=== PATIENT | female | born 1985 | race Caucasian/White ===

== ENCOUNTER 2017-08-19 14:18 | Emergency (ER) | payer MEDICAID, OTHER ==
[~2017-08-19] VITALS: Ht 152.4 cm; Wt 110.0 kg
[2017-08-19 14:27] VITALS: Ht 152.4 cm; Wt 110.0 kg
[2017-08-19 17:02] LABS: BASOPHILS % 0.4 % (0.0-2.0); EOSINOPHILS # 0.1 10^3/ul (0.0-0.5); HEMATOCRIT 41.1 % (37.0-47.0); HEMOGLOBIN 13.7 g/dl (12.0-16.0); LYMPHOCYTES # 3.1 10^3/ul (0.8-2.9); LYMPHOCYTES % 37.5 % (15.0-51.0); MEAN CORPUSCULAR HEMOGLOBIN 30.3 pg (29.0-33.0); MEAN CORPUSCULAR HGB CONC 33.3 g/dl (32.0-37.0); MEAN CORPUSCULAR VOLUME 90.9 fl (82.0-101.0); MEAN PLATELET VOLUME 9.2 fl (7.4-10.4); MONOCYTE # 0.5 10^3/ul (0.3-0.9); MONOCYTES % 6.1 % (0.0-11.0); NEUTROPHIL # 4.5 10^3/ul (1.6-7.5); NEUTROPHILS % 54.8 % (39.0-77.0); PLATELET COUNT 299 10^3/UL (140-415); RED BLOOD COUNT 4.52 10^6/ul (4.20-5.40); RED CELL DISTRIBUTION WIDTH 13.4 % (11.5-14.5); WHITE BLOOD COUNT 8.2 10^3/ul (4.8-10.8)
--- NOTE | 2017-08-19 17:03 | RADRPT ---
PROCEDURE: US Pelvis CLINICAL INDICATION: vaginal bleeding x 1 week TECHNIQUE: Multiple sonographic images of the pelvis were obtained utilizing a transabdominal and endovaginal technique. The images were reviewed on a PACS workstation. COMPARISON: None. FINDINGS: The uterus measures 7.6 x 3.6 x 4.6 cm. The endometrial echo complex measures 5 mm in thickness. N o discrete lesion is seen. The right ovary measures 3.5 x 1.5 x 2.2 cm. The left ovary measures 3.0 x 1.4 x 2.3 cm. There is no rmal vascular flow in both ovaries. No significant ovarian lesions are seen. No significant pelvic free fluid is identified. IMPRESSION: Unremarkable pelvic ultrasound, as above. RPTAT: EE Physician Jaskaran Date Time Electronically viewed and signed by Physician Jaskaran on 08/19/2017 17:03 /
[2017-08-19 17:06] LABS: ADD UMIC YES; UR ASCORBIC ACID NEGATIVE (NEGATIVE); UR BILIRUBIN (Dip) NEGATIVE (NEGATIVE); UR BLOOD (Dip) 3+ mg/dL (NEGATIVE); UR CLARITY CLEAR (CLEAR); UR COLOR YELLOW (YELLOW); UR GLUCOSE (Dip) NEGATIVE (NEGATIVE); UR KETONES (Dip) NEGATIVE (NEGATIVE); UR LEUKOCYTE ESTERASE (Dip) NEGATIVE Leu/ul (NEGATIVE); UR NITRITE (Dip) NEGATIVE (NEGATIVE); UR RBC 37 /HPF (0-5); UR SPECIFIC GRAVITY (Dip) 1.015 (1.003-1.030); UR TOTAL PROTEIN (Dip) NEGATIVE (NEGATIVE); UR UROBILINOGEN (Dip) NEGATIVE (NEGATIVE)
--- NOTE | 2017-08-19 17:34 | ERD ---
ER Documentation Chief Complaint Date/Time DATE: 08/19/17 TIME: 17:30 Chief Complaint vaginal bleeding, not HPI This is a 32-year-old female who presents the emergency department today complaining of vaginal bleeding past 5 days. Patient states that last week she started bleeding a lot and passed a couple clots. States that she recently started a new oral contraceptive pill. States se does have some crampy lower pelvic pain. She came to the ER because her parents told her that she looked pale. She does have an appointment for follow-up next week with her clinic that prescribed her pills. Denies any fevers or chills. ROS All systems reviewed and are negative except as per history of present illness. Medications Home Meds Active Scripts Acetaminophen* (Tylophen*) 500 Mg Capsule, 1 CAP PO Q6H Y for PAIN AND OR ELEVATED TEMP, #30 CAP Prov:KOBY WHYTE PA-C 08/19/17 Naproxen* (Naprosyn*) 500 Mg Tablet, 500 MG PO BID Y for PAIN AND/OR INFLAMMATION, #30 TAB Prov:KOBY WHYTE PA-C 08/19/17 Allergies Allergies: Coded Allergies: No Known Allergies (Verified Allergy, 01/12/14) PMhx/Soc Medical and Surgical Hx: pt denies Medical Hx, pt denies Surgical Hx Hx Miscellaneous Medical Probl: Yes (MORBIDLY OBESE) Hx Alcohol Use: No Hx Substance Use: No Hx Tobacco Use: No Smoking Status: Never smoker Physical Exam Vitals Vital Signs Date Time Temp Pulse Resp B/P Pulse Ox O2 Delivery O2 Flow Rate FiO2 08/19/17 14:27 99.6 69 18 119/56 99 Physical Exam Const: obese, NAD Head: Atraumatic Eyes: Normal Conjunctiva ENT: Normal External Ears, Nose and Mouth. Neck: Full range of motion..~ No meningismus. Resp: Clear to auscultation bilaterally Cardio: Regular rate and rhythm, no murmurs Abd: Soft, mild pelvic tenderness, non distended. Normal bowel sounds Skin: No petechiae or rashes Back: No midline or flank tenderness Ext: No cyanosis, or edema Neur: Awake and alert Psych: Normal Mood and Affect Result Diagram: 08/19/17 1640 Results 24 hrs Laboratory Tests Test 08/19/17 16:40 White Blood Count 8.210^3/ul Red Blood Count 4.5210^6/ul Hemoglobin 13.7g/dl Hematocrit 41.1% Mean Corpuscular Volume 90.9fl Mean Corpuscular Hemoglobin 30.3pg Mean Corpuscular Hemoglobin Concent 33.3g/dl Red Cell Distribution Width 13.4% Platelet Count 02937^3/UL Mean Platelet Volume 9.2fl Neutrophils % 54.8% Lymphocytes % 37.5% Monocytes % 6.1% Eosinophils % 1.0% Basophils % 0.4% Nucleated Red Blood Cells % 0.0/100WBC Neutrophils # 4.510^3/ul Lymphocytes # 3.110^3/ul Monocytes # 0.510^3/ul Eosinophils # 0.110^3/ul Basophils # 0.010^3/ul Nucleated Red Blood Cells # 0.010^3/ul Urine Color YELLOW Urine Clarity CLEAR Urine pH 6.0 Urine Specific [place] 1.015 Urine Ketones NEGATIVEmg/dL Urine Nitrite NEGATIVEmg/dL Urine Bilirubin NEGATIVEmg/dL Urine Urobilinogen NEGATIVEmg/dL Urine Leukocyte Esterase NEGATIVELeu/ul Urine Microscopic RBC 37/HPF Urine Microscopic WBC 3/HPF Urine Hemoglobin 3+mg/dL Urine Glucose NEGATIVEmg/dL Urine Total Protein NEGATIVEmg/dl DIAGNOSTIC IMAGING REPORT Patient: ROSELIA WITT : 1985 Age: 32 Sex: F [id number] DOS: 08/19/17 0000 Ordering MD: KOBY WHYTE PA-C Location: E Room/Bed: PROCEDURE: US Pelvis CLINICAL INDICATION: vaginal bleeding x 1 week TECHNIQUE: Multiple sonographic images of the pelvis were obtained utilizing a transabdominal and endovaginal technique. The images were reviewed on a PACS workstation. COMPARISON: None. FINDINGS: The uterus measures 7.6 x 3.6 x 4.6 cm. The endometrial echo complex measures 5 mm in thickness. No discrete lesion is seen. The right ovary measures 3.5 x 1.5 x 2.2 cm. The left ovary measures 3.0 x 1.4 x 2.3 cm. There is normal vascular flow in both ovaries. No significant ovarian lesions are seen. No significant pelvic free fluid is identified. IMPRESSION: Unremarkable pelvic ultrasound, as above. RPTAT: EE Mohit Meehan, Physician Date Time Electronically viewed and signed by Mohit Meehan Physician on 08/19/2017 17:03 RA/ CC: KOBY WHYTE PA-C Procedures/MDM This is a 32-year-old female who presents the emergency department today complaining of vaginal bleeding for the past 5 days. Patient indicated she recently started a new oral contraceptive pill. I did obtain laboratory work as well as imaging given patients complaints. test is negative Laboratory Workup shows no elevated white blood cell count. Her hemoglobin is 13.7 and she is not anemic. Platelets are within normal limits. Pelvic ultrasound is unremarkable. There is no pelvic free fluid. There is normal vascular flow to both ovaries. There are no lesions. Low suspicion for ectopic , tubo-ovarian abscess, ovarian torsion. Patient is afebrile and otherwise well-appearing. Low suspicion for acute surgical abdomen. Patient symptoms at this time is consistent with vaginal bleeding. She is already taking oral contraceptive pills and I will not change them at this time. She may follow-up with her tipple engineer who prescribed the pills. I have explained this to the patient. She will be given a prescription for Naprosyn and Tylenol for home. At this time the patient is stable for discharge and outpatient management. Patient should follow up with their PCP in the next 1-2 days. They may return to the emergency department sooner for any persistent or worsening of symptoms. Patient understood and agreed with the plan. Departure Diagnosis: Primary Impression: Vaginal bleeding Condition: Fair KOBY WHYTE PA-C Aug 19, 2017 17:34
[2017-08-19] MEDS ORDERED: ACET500C5 PO (17:41)
[2017-08-19] MEDS ORDERED: NAPR-260 PO (17:41)
[2017-08-19 17:53] VITALS: BP 115/62; PULSE 84; RESP 18; TEMP 98.3
== END 2017-08-19 17:55 | disposition home or self-care (01) ==
LOC: FTE 14:18
DX: N93.8 Other specified abnormal uterine and vaginal bleeding (principal); E66.01 Morbid (severe) obesity due to excess calories
CPT/HCPCS: 76856; 81001; 85025; Z7502

== ENCOUNTER 2018-12-22 15:11 | Emergency (ER) | payer OTHER ==
[~2018-12-22] VITALS: Ht 160 cm; Wt 136.4 kg
[~2018-12-22 15:11] MED LIST: ACET500C5 PO; NAPR-985 PO
[2018-12-22 15:28] VITALS: Ht 160 cm; Wt 136.4 kg
[2018-12-22] MEDS ORDERED: ACETAMINOPHEN 500 MG TAB PO STA (16:26)
--- NOTE | 2018-12-22 16:35 | ERD ---
ER Documentation Chief Complaint Chief Complaint bodyaches starting today, dizziness, low grade fever HPI Is a 33-year-old female who is she just recently found out she is so she has not had any OB care. She is complaining of fever and body aches and mild runny nose and dizziness that began today. She has mild pelvic cramping but no vaginal bleeding. No dysuria hematuria frequency. No nausea or vomiting. Has not taken any medication for her symptoms. ROS All systems reviewed and are negative except as per history of present illness. Medications Home Meds Active Scripts Acetaminophen* (Tylophen*) 500 Mg Capsule, 1 CAP PO Q6H PRN for PAIN AND OR ELEVATED TEMP, #30 CAP Prov:KOBY WHYTE PA-C 08/19/17 Naproxen* (Naprosyn*) 500 Mg Tablet, 500 MG PO BID PRN for PAIN AND/OR INFLAMMATION, #30 TAB Prov:KOBY WHYTE PA-C 08/19/17 Allergies Allergies: Coded Allergies: No Known Allergies (Verified Allergy, Unknown, 12/22/18) PMhx/Soc History of Surgery: No Anesthesia Reaction: No Hx Neurological Disorder: No Hx Respiratory Disorders: No Hx Cardiac Disorders: No Hx Psychiatric Problems: No Hx Miscellaneous Medical Probl: Yes (MORBIDLY OBESE) Hx Alcohol Use: No Hx Substance Use: No Hx Tobacco Use: No Smoking Status: Never smoker FmHx Family History: No diabetes Physical Exam Vitals Vital Signs Date Temp Pulse Resp B/P (MAP) Pulse Ox O2 O2 Flow FiO2 Time Delivery Rate 12/22/18 100.3 103 18 167/76 99 15:28 (106) Physical Exam INITIAL VITAL SIGNS: Reviewed by me GENERAL: Awake, alert and oriented x 4, well appearing, nontoxic, speaking in full sentences. No acute distress HEAD: Atraumatic NECK: Supple. No masses. Full range of motion. No meningismus. No midline tenderness. EYES: EOMI. PERRL. THROAT: No tonilar erythema or edema. No exudates. Uvula midline. No kissing tonsils. RESPIRATORY: Clear to auscultation bilaterally. Symmetric chest wall rise. No wheezing or rales. No accessory muscle use. CV: Regular rate and rhythm. No murmurs, rubs, or gallops. ABDOMEN: Soft, non-distended. Nontender. Negative [place]. Negative [place]neys point tenderness. No CVA tenderness bilaterally. No guarding. No rebound. EXTREMITIES: No clubbing or cyanosis. No edema. Moving all extremities normally. BACK: No midline tenderness to palpation. No step-offs. Result Diagram: 12/22/18 1727 Results 24 hrs Laboratory Tests Test 12/22/18 16:45 12/22/18 17:27 Urine Color YELLOW Urine Clarity CLEAR Urine pH 8.0 Urine Specific [place] 1.014 Urine Ketones 2+ mg/dL Urine Nitrite NEGATIVE mg/dL Urine Bilirubin NEGATIVE mg/dL Urine Urobilinogen NEGATIVE mg/dL Urine Leukocyte Esterase NEGATIVE Scot/ul Urine Hemoglobin NEGATIVE mg/dL Urine Glucose NEGATIVE mg/dL Urine Total Protein NEGATIVE mg/dl White Blood Count 4.2 10^3/ul Red Blood Count 4.17 10^6/ul Hemoglobin 12.4 g/dl Hematocrit 36.8 % Mean Corpuscular Volume 88.2 fl Mean Corpuscular Hemoglobin 29.7 pg Mean Corpuscular Hemoglobin Concent 33.7 g/dl Red Cell Distribution Width 14.1 % Platelet Count 230 10^3/UL Mean Platelet Volume 9.6 fl Immature Granulocytes % 0.500 % Neutrophils % % Segmented Neutrophils % (Manual) 68 % Band Neutrophils % (Manual) 2 % Lymphocytes % % Lymphocytes % (Manual) 8 % Reactive Lymphocytes % (Manual) 5 % Monocytes % % Monocytes % (Manual) 16 % Eosinophils % % Basophils % % Basophils % (Manual) 1 % Nucleated Red Blood Cells % 0.0 /100WBC Immature Granulocytes # 0.020 10^3/ul Neutrophils # 10^3/ul Neutrophils # (Manual) 2.9 10^3/ul Band Neutrophils # 0.0 10^3/ul Lymphocytes (Manual) 0.3 10^3/ul Lymphocytes # 10^3/ul Reactive Lymphocytes # 0.2 10^3/ul Monocytes # 10^3/ul Monocytes # (Manual) 0.6 10^3/ul Eosinophils # 10^3/ul Basophils # 10^3/ul Basophils # (Manual) 0.0 10^3/ul Nucleated Red Blood Cells # 10^3/ul Platelet Estimate NORMAL Giant Platelets 1 % Polychromasia 1+ Beta HCG, Quantitative 00794.0 mIU/ml Current Medications Medications Dose Sig/Sanjana Start Time Status Last (Trade) Ordered Route PRN Stop Time Admin Dose Reason Admin 1,000 mg ONCE STAT 12/22/18 DC 12/22/18 Acetaminophen PO 16:26 17:22 (Tylenol 12/22/18 16:29 Tab) Procedures/MDM This patient presents with flulike symptoms and low-grade temperature. She was given Tylenol. She is also without any OB care and therefore did initiate OB labs and ultrasound. Flu test is negative. OB ultrasound shows 6 weeks 3 days and a moderate area of subchorionic hemorrhage. She is O- so decision was made to give her RhoGam. She is otherwise hemodynamically stable and given copy of all her labs and ultrasound reports that she can follow with primary care. Continue to take Tylenol for pain and fever. Patient counseled regarding my diagnostic impression and care plan. Prior to discharge all questions answered. Pt agrees with treatment plan and understands strict return precautions. Pt is instructed to follow up with primary care provider within 24- 48 hours. Precautionary instructions provided including instructions to return to the ER if not improving or for any worsening or changing symptoms or concerns. Departure Diagnosis: Primary Impression: Flu-like symptoms Additional Impression: Condition: Stable TUNDE DAMON PA-C Dec 22, 2018 16:35
[2018-12-22 20:39] VITALS: BP 159/68; PULSE 79; RESP 16
== END 2018-12-22 20:42 | disposition home or self-care (01) ==
LOC: FTE 15:11
DX: O99.89 Other specified diseases and conditions complicating pregnancy, childbirth and the puerperium (principal); R50.9 Fever, unspecified; R09.89 Other specified symptoms and signs involving the circulatory and respiratory systems; R42 Dizziness and giddiness; O26.891 Other specified pregnancy related conditions, first trimester; R10.2 Pelvic and perineal pain; Z3A.01 Less than 8 weeks gestation of pregnancy
CPT/HCPCS: 76801; 76817; 81003; 84702; 85025; 86900; 86901; 87400; J2790; Z7610